=== PATIENT | male | born 1945 | race Caucasian/White ===

== ENCOUNTER 2023-09-26 03:47 | Emergency (ER) | payer OTHER ==
--- OUTSIDE RECORDS SUMMARY | 2023-09-26 03:50 | XMS REPORT | Continuity of Care Document ---
Author Name Unknown Address [address] [place] [address] [address] [place] [address] [facility] thconnect Address [address] [facility] 1 [address] [place] [address] Care Team Providers Care Sales Attendant Building Materials Name Role Phone [email or web address]_W Attending Clinician Unavaila ble [email or web address]_Heath_W Admitting Clinician Unavaila ble Payers Payer Name Policy Type Policy Number Effective Date Expirati on Date Source MEDICARE [place]: [employer] [id number] 2012 00:00:00 [employer] - FOR LIFE (MEDICARE SUPPLEMENT) [id number] Problems Condition Name Condition Details Condition Category Status Onset Date Resolution Date Last Treatment Date Treating Clinician Comments Source Right flank pain Right Flank Pain Problem Active 5-26 00:00: 00 [facility] Benign prostatic hyperplasi a Benign Prostatic Hyperplasi a Problem Active 2022-02 1-15 00:00: 00 [facility] 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 Problem Active 4-03 00:00: 00 [facility] Secondary erectile dysfunctio n Secondary Erectile Dysfunctio n Problem Active 3-28 00:00: 00 [facility] Chronic kidney disease stage 2 Chronic Kidney Disease Stage 2 Problem Active 1-05 00:00: 00 [facility] Fatigue Fatigue Problem Active 2020-02 2-14 00:00: 00 [facility] Inflammato ry neuropathy Inflammato ry Neuropathy Problem Active 8-16 00:00: 00 [facility] Arthropath y Arthropath y Problem Active 8-16 00:00: 00 [facility] Joint pain Joint Pain Problem Active 8-16 00:00: 00 [facility] Shoulder pain Shoulder Pain Problem Active 2-26 00:00: 00 [facility] Acute ankle pain Acute Ankle Pain Problem Active 04-13 00:00: 00 [facility] Right achilles tendonitis Right Achilles Tendonitis Problem Active 04-13 00:00: 00 [facility] Disturbanc e in sleep behavior Disturbanc e in Sleep Behavior Problem Active 2019-02 2 00:00: 00 [facility] Asthenia Asthenia Problem Active 10-05 00:00: 00 [facility] Nocturia Nocturia Problem Active 10-05 00:00: 00 [facility] Patient encounter status Patient Encounter Status Problem Active 10-05 00:00: 00 [facility] 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 Problem Active 09-08 00:00: 00 [facility] Hyperlipid emia Hyperlipid emia Problem Active 09-08 00:00: 00 [facility] Low back pain Low Back Pain Problem Active 05-04 00:00: 00 [facility] General symptom General Symptom Problem Active 2013-02 0 00:00: 00 [facility] Amnesia Amnesia Problem Active 2013-02 0 00:00: 00 [facility] Electrocar diogram abnormal Electrocar diogram Abnormal Problem Active 10-11 00:00: 00 [facility] Hypertensi ve disorder Hypertensi ve Disorder Problem Active 10-26 00:00: 00 [facility] Clinical finding Clinical Finding Problem Active 10-26 00:00: 00 [facility] Allergies, Adverse Reactions, Alerts Allergy Name Allergy Type Status Severity Reaction(s) Onset Date Inactive Date Treating Clinician Comments Source AMLODIPI NE BESYLATE Allergy to substanc e Active Edema [facility] Social History Smoking Status Start Date Stop Date Source Never Smoker [facility] Medications Ordered Medication Name Filled Medication Name Start Date Stop Date Current Medication? Ordering Clinician Indication Dosage Frequency Signature (SIG) Comments Components Source atorvastati n 40 mg tablet atorvastati n 40 mg tablet No atorvastat in 40 mg tablet [facility] dorzolamide 2 % eye drops dorzolamide 2 % eye drops No dorzolamid e 2 % eye drops [facility] Edarbi 80 mg tablet TAKE 1 TABLET BY MOUTH EVERY DAY Edarbi 80 mg tablet TAKE 1 TABLET BY MOUTH EVERY DAY No Edarbi 80 mg tablet TAKE 1 TABLET BY MOUTH EVERY DAY [facility] omeprazole 20 mg capsule,del ayed release 1 PO QD omeprazole 20 mg capsule,del ayed release 1 PO QD No omeprazole 20 mg capsule,de layed release 1 PO QD [facility] tadalafil 20 mg tablet TAKE 1 TABLET NEEDED tadalafil 20 mg tablet TAKE 1 TABLET NEEDED No 1 tadalafil 20 mg tablet TAKE 1 TABLET NEEDED [facility] temazepam 30 mg capsule Take 1 capsule every day by oral route at bedtime for 90 days. temazepam 30 mg capsule Take 1 capsule every day by oral route at bedtime for 90 days. No 1capsul e(s) Q1D temazepam 30 mg capsule Take 1 capsule every day by oral route at bedtime for 90 days. [facility] compounded medication Test 200mg 1 cc IM weekly Test 200mg 1 cc IM weekly compounded medication Test 200mg 1 cc IM weekly Test 200mg 1 cc IM weekly No compounded medication Test 200mg 1 cc IM weekly Test 200mg 1 cc IM weekly [facility] dutasteride 0.5 mg capsule 1 PO QD dutasteride 0.5 mg capsule 1 PO QD No dutasterid e 0.5 mg capsule 1 PO QD [facility] Lasix 40 mg tablet Take 1 tablet every day by oral route in the morning for 90 days. Lasix 40 mg tablet Take 1 tablet every day by oral route in the morning for 90 days. No 1 Q1D Lasix 40 mg tablet Take 1 tablet every day by oral route in the morning for 90 days. [facility] nifedipine ER 60 mg tablet,exte nded release Take 1 tablet every day by oral route. nifedipine ER 60 mg tablet,exte nded release Take 1 tablet every day by oral route. No 1 Q1D nifedipine ER 60 mg tablet,ext ended release Take 1 tablet every day by oral route. [facility] sildenafil 50 mg tablet Take 1 tablet every 72 hours by oral route as directed for 90 days. sildenafil 50 mg tablet Take 1 tablet every 72 hours by oral route as directed for 90 days. No 1 sildenafil 50 mg tablet Take 1 tablet every 72 hours by oral route as directed for 90 days. [facility] testosteron e cypionate 200 mg/mL intramuscul ar oil inject 1 ML INTRAMUSCUL RYAN EVERY WEEK testosteron e cypionate 200 mg/mL intramuscul ar oil inject 1 ML INTRAMUSCUL RYAN EVERY WEEK No testostero ne cypionate 200 mg/mL intramuscu lar oil inject 1 ML INTRAMUSCU LARLY EVERY WEEK [facility] Immunizations Ordered Immunization Name Filled Immunization Name Date Status Comments Source COVID-19, mRNA, LNP-S, PF, 100 mcg/0.5 mL dose (Moderna) - ML COVID-19, mRNA, LNP-S, PF, 100 mcg/0.5 mL dose (Moderna) - ML Unknown Completed [facility] TST, unspecified formulation TST, unspecified formulation Unknown Completed [facility] pneumococcal polysaccharide PPV23 pneumococcal polysaccharide PPV23 Unknown Completed [facility] COVID-19, mRNA, LNP-S, PF, 30 mcg/0.3 mL dose, cricket-sucrose (Pfizer-BioNTech) - ML COVID-19, mRNA, LNP-S, PF, 30 mcg/0.3 mL dose, cricket-sucrose (Pfizer-BioNTech) - ML Unknown Completed [facility] Vital Signs Vital Name Observation Time Observation Value Comments S ource BP Diastolic 2023-07-12 00:00:00 88 mm[Hg] [facility] Body Weight 2023-07-12 00:00:00 3538 [oz_av] [facility] BP Systolic 2023-07-12 00:00:00 132 mm[Hg] [facility] BMI (Body Mass Index) 2023-07-12 00:00:00 29.2 kg/m2 [facility] Height 2023-07-12 00:00:00 73 [in_i] [facility] BP Diastolic 2022-05-19 00:00:00 72 mm[Hg] [facility] Height 2022-05-19 00:00:00 73 [in_i] [facility] BMI (Body Mass Index) 2022-05-19 00:00:00 29 kg/m2 [facility] BP Systolic 2022-05-19 00:00:00 128 mm[Hg] [facility] Body Weight 2022-05-19 00:00:00 3520 [oz_av] [facility] Procedures Procedure Date / Time Performed Performing Clinicia n Source CT, abdomen + pelvis, w/o contrast 2023-07-12 00:00:00 [facility] Encounters Start Date/Time End Date/Time Encounter Type Admission Type Attending Clinicians Care Facility Care Department Encounter ID Source 2023-07-12 00:00:00 2023-07-12 00:00:00 LEEANNA Ruiz: [address] [place] [address] , Ph. [facility] - GC_GCVMD_Au stin Office* [id number] [facility] 2023-05-20 00:00:00 2023-05-20 00:00:00 Outpatient GC_GCVMD_Fr anklin_W PRIV PRIV [id number] [facility] 2023-05-19 00:00:00 2023-05-19 00:00:00 Outpatient GC_GCVMD_Fr anklin_W PRIV PRIV [id number] [facility] 2023-04-21 00:00:00 2023-04-21 00:00:00 Outpatient GC_GCVMD_Fr anklin_W PRIV PRIV [id number] [facility] 2023-03-24 00:00:00 2023-03-24 00:00:00 Outpatient GC_GCVMD_Fr anklin_W PRIV PRIV [id number] [facility] 2022-05-19 00:00:00 2022-05-19 00:00:00 Outpatient GC_GCVMD_Fr anklin_W PRIV PRIV [id number] [facility] 2022-05-19 00:00:00 2022-05-19 00:00:00 LEEANNA Ruiz: [address] [place] [address], [facility] [address], [place] [address] , Ph. [facility] - GC_GCVMD_Dorian [facility] Office [id number] [facility] 2022-05-16 00:00:00 2022-05-16 00:00:00 Outpatient GC_GCVMD_Fr anklin_W PRIV PRIV [id number] [facility] 2022-05-16 00:00:00 2022-05-16 00:00:00 Outpatient GC_GCVMD_Fr anklin_W [facility] [id number] [facility] 2022-05-15 00:00:00 2022-05-15 00:00:00 Outpatient GC_GCVMD_Fr danae_Travon [facility] [id number] [facility] 2022-04-21 00:00:00 2022-04-21 00:00:00 Outpatient GC_GCVMD_Fr danae_Travon [facility] [id number] [facility] Results Test Description Test Time Test Comments Results Result Co mments Source [facility] - Serum or [id number] 00:00:00* Test Item Value Reference Range Interpretation Comme nts sodium (test code = sodium) 142 mmol/L 136-145 potassium (test code = potassium) 5.1 mmol/L 3.5-5.5 chloride (test code = chloride) 103 mmol/L 98-107 CO2 (test code = CO2) 27 mmol/ L 23-31 glucose (test code = glucose) 94 mg/dL 70-99 BUN (test code = BUN) 17 mg/dL 6-20 creatinine (test code = creatinine) 1.5 mg/dL 0.7-1.2 H calcium (test code = calcium) 9.4 mg/dL 8.8-10.6 total protein (test code = total protein) 6.7 g/dL 6.0-8.3 albumin (test code = albumin) 4.4 g/dL 3.5-5.2 total bilirubin (test code = total bilirubin) 0.5 mg/dL 0.0-1.2 alkaline phosphatase (test code = alkaline phosphatase) 75 U/L 44-147 AST (SGOT) (test code = AST (SGOT)) 29 U/L 0-40 ALT (SGPT) (test code = ALT (SGPT)) 24 U/L 0-41 globulin (test code = globulin) 2.3 g/dL 1.7-3.7 A/G ratio (test code = A/G ratio) 1.9 calc. 1.1-2.9 BUN/creatinine ratio (test code = BUN/creatinine ratio) 11.3 calc 10.0-28.0 eGFR non- (test code = eGFR non-) 48.624 mL/min/1.73A? >60.000 L eGFR (test code = eGFR ) 58.349 mL/min/1.73A? >60.000 L [facility] panel - Serum or [id number] 00:00:00* Test Item Value Reference Range Interpretation Comme nts cholesterol (test code = cholesterol) 108 mg/dL 0-200 triglycerides (test code = triglycerides) 68 mg/dL 10-150 HDL cholesterol (test code = HDL cholesterol) 41 mg/dL >40 HDL risk factor (test code = HDL risk factor) 2.6 calc. VLDL cholesterol (test code = VLDL cholesterol) 14 calc Cholesterol in LDL [Mass/vol ume] in Serum or Plasma (test code = 2089-1) 58 mg/dL <100 [facility] Blood by Automated [id number] 00:00:00* Test Item Value Reference Range Interpretation Comme nts WBC (test code = WBC) 7.0 10 3.7-12.0 RBC (test code = RBC) 5.31 10 3.60-5.50 HGB (test code = HGB) 15.8 g/dL 13.5-17.5 HCT (test code = HCT) 49.4 % 35.0-53.0 MCV (test code = MCV) 93.2 um 80.0-102.0 MCH (test code = MCH) 29.7 pg 25.0-34.1 MCHC (test code = MCHC) 31.9 g/dL 29.0-35.0 RDW (test code = RDW) 15.5 % 10.9-16.9 plt (test code = plt) 139 10 136-392 MPV (test code = MPV) 10.3 um 7.4-11.1 gran % (test code = gran %) 50.0 % 36.0-78.0 lymph % (test code = lymph %) 33.7 % 12.0-48.0 mono % (test code = mono %) 11.5 % 0.0-13.0 eos % (test code = eos %) 4 % 0-8 baso % (test code = baso %) 1 % 0-2 gran # (test code = gran #) 3.5 10 1.2-6.8 lymph # (test code = lymph #) 2.3 10 1.2-3.2 mono # (test code = mono #) 0.8 10 0.3-0.8 eos # (test code = eos #) 0.3 10 0.0-0.2 H baso # (test code = baso #) 0.0 10 0.0-0.2 [facility]
[2023-09-26] MEDS ORDERED: ACETAMINOPHEN 500 MG TAB ONE (04:01)
[2023-09-26] MEDS ORDERED: KETOROLAC 30 MG/ML INJ ONE (04:02)
[2023-09-26] MEDS ORDERED: BENZONATATE 100 MG CAP PO ONE (04:02)
[2023-09-26 04:42] LABS: Absolute Basophils 0.1 K/uL (0-0.5); Absolute Eosinophils 0.1 K/uL (0-0.5); Absolute Lymphocytes (CBC) 0.8 K/uL (0.7-4.9); Absolute Monocytes 0.8 K/uL (0.1-1.3); Absolute Neutrophil 7.5 K/uL (1.8-8.0); Basophils % 0.9 % (0-1.3); Eosinophils % 1.4 % (0-4.4); Hematocrit 44.8 % (39.6-49.0); Hemoglobin 14.9 g/dL (13.6-17.9); Lymphocytes % 8.9 % (15.3-44.8); MCH 30.1 pg (27.0-35.0); MCHC 33.3 g/dL (32.0-36.0); MCV 90.3 fL (80-100); MPV 9.3 fL (7.6-11.3); Neutrophils % 79.8 % (41.7-73.7); Nucleated Red Blood Cells % 0.1 % (0-0); Platelets 144 thou/uL (152-406); RBC Red Blood Cell Count 4.96 M/uL (4.33-5.43); Red Cell Distribution Width 16.7 % (12.1-15.2)
[2023-09-26 04:50] LABS: Albumin 3.5 g/dL (3.4-5.0); Albumin/Globulin Ratio 1.1 (1.1-1.8); Anion Gap 9.9 mEq/L (5.0-15.0); Bilirubin Total 0.5 mg/dL (0.2-1.0); Globulin 3.1 g/dL (2.3-3.5); Potassium 3.9 mEq/L (3.5-5.1); Protein, Total 6.6 g/dL (6.4-8.2)
[2023-09-26 05:02] LABS: SARS-CoV-2 Antigen CONTROL BLUE LINE VIS/BG OK; SARS-CoV-2 Antigen Rapid Res Negative (Negative)
[2023-09-26 05:31] LABS: Band Neutrophils 11 % (0-1); Blood Morphology Comment NOT SEEN (NOT SEEN); Differential Total Cells Count 100; Eosinophils 2 % (0-3); Lymphocytes 16 % (15-42); Monocytes 4 % (0-10); Platelet Estimate ADEQ; Reactive Lymphocytes 6 %; Segmented Neutrophils 60 % (40-80)
--- NOTE | 2023-09-26 05:35 | EDPHYS ---
Physician Documentation [facility] Name: Armando Oro Jr Age: 77 yrs Sex: Male : 1945 Arrival Date: 09/26/2023 Time: 03:47 Bed 5 Private MD: ED Physician Paolo Hendrickson HPI: 09/25 04:14 This 77 yrs old Male presents to ER via Ambulatory with complaints of URI s/s.ec2 04:14 Patient arrives today for evaluation of URI signs symptoms ongoing for 2 days. Patient ec2 reports some malaise, cough and congestion, some pain with coughing. Patient reports no nausea or vomiting or diarrhea. Denies any abdominal pain. No history of pulmonary pathology, no inhaler use. History of hypertension and hyperlipidemia. Non-smoker. Historical: - Allergies: 04:03 No Known Allergies; jj7 - PMHx: 04:04 High Cholesterol; Hypertension; GERD (Hypertension); jj7 - PSHx: 04:04 Appendectomy; jj7 - Immunization history:: Adult Immunizations up to date, Client reports receiving the 2nd dose of the Covid vaccine, Flu vaccine is up to date. - Infectious Disease History:: Denies. - Social history:: Smoking status: Patient denies any tobacco usage or history of. Patient uses alcohol, weekly. Patient/guardian denies using street drugs, IV drugs. ROS: 04:14 Constitutional: as per hpi ec2 Exam: 04:14 Constitutional: GEN: NAD Head: atraumatic Eyes: EOMI Ears: External ears are ec2 normal. CV: regular rate LUNGS: no respiratory distress, scattered wheeze noted. ABD: non-distended SKIN: no evidence of rashes MSK: no evidence of trauma NEURO: moves all extremities equally Vital Signs: 04:00 BP 163 / 79; Pulse 105; Resp 18; Temp 100.7; Pulse Ox 96% ; Weight 97.52 kg; Height 6 jj7 ft. 0 in. ; 04:41 BP 119 / 61; Pulse 84; ec2 05:11 BP 108 / 66; Pulse 84; Resp 18; Temp 99.1; Pulse Ox 93% ; Pain 3/10; bm8 04:00 Body Mass Index 29.16 (97.52 kg, 182.88 cm) jj7 05:11 Pain Scale: Adult bm8 Toney Coma Score: 05:11 Eye Response: spontaneous(4). Motor Response: obeys commands(6). Verbal Response: bm8 oriented(5). Total: 15. MDM: 03:50 Patient medically screened. ec2 04:14 Data reviewed: vital signs. ED course: Patient arrives today for URI signs and ec2 symptoms. Examination remarkable for slightly tachycardic febrile individuals otherwise in no acute distress with a reassuring overall examination. Will obtain lab work, chest x-ray, viral swabs. . 05:34 ED course: Chest x-ray independently reviewed and interpreted by me, shows no acute ec2 intrathoracic process. Suspect viral infection. Patient noted to have borderline saturations of 90-92, I recommended ambulatory challenge with pulse ox however the patient declined. Will discharge home. Will give the patient albuterol for his occasional scattered wheeze, no evidence of volume overload, no evidence of pneumonia, doubt PE given concurrent infectious symptoms. Return precautions given.. 09/25 03:57 Order name: CBC with Diff; Complete Time: 05:35 ec2 09/25 03:57 Order name: CMP; Complete Time: 04:50 ec2 09/25 03:57 Order name: Influenza Screen (a \T\ B); Complete Time: 05:06 ec2 09/25 03:57 Order name: SARS RAPID; Complete Time: 05:06 ec2 09/25 05:10 Order name: Manual Differential; Complete Time: 05:35 EDMS 09/25 03:57 Order name: CXR XRAY ec2 09/25 03:57 Order name: IV; Complete Time: 04:18 ec2 Administered Medications: 04:16 Drug: Tessalon Perle PO 100 mg PO once Route: PO; bm8 05:12 Follow up: Response: No adverse reaction bm8 04:16 Drug: Ketorolac IVP 15 mg IVP once Route: IVP; Site: right antecubital; bm8 05:12 Follow up: Response: No adverse reaction bm8 04:16 Drug: Acetaminophen PO 1000 mg PO once Route: PO; bm8 05:12 Follow up: Response: No adverse reaction bm8 05:46 Drug: Albuterol HFA Inhalation Inhaler 2 puffs Inhalation once Route: Inhalation; bm8 05:46 Follow up: Response: Medication administered at discharge. bm8 05:46 Drug: Codeine-Guaifenesin PO Liquid (10 mg-100 mg/5 mL) 5 ml PO once Route: PO; bm8 05:47 Follow up: Response: Medication administered at discharge. bm8 Disposition Summary: 09/26/23 05:34 Discharge Ordered Notes: Location: Home ec2 Condition: Stable ec2 Diagnosis - Viral infection, unspecified ec2 Followup: ec2 - With: Private Physician - When: - Reason: Re-evaluation by your physician Discharge Instructions: - Discharge Summary Sheet ec2 - Viral Illness, Adult ec2 Forms: - Medication Reconciliation Form ec2 - Antibiotic Education ec2 - Prescription Opioid Use ec2 - Patient Portal Instructions ec2 - Leadership Thank You Letter ec2 Prescriptions: - codeine-guaifenesin 10-200 mg/5 mL Oral liquid - take 10 milliliter ORAL route every 4 hours; 100 milliliter; Refills: 0, ec2 Product Selection Permitted - Tessalon Perles 100 mg Oral Capsule - take 1 capsule ORAL route every 8 hours As needed; 15 capsule; Refills: 0, ec2 Product Selection Permitted Signatures: Dispatcher [employer] EDMS Shimon Munoz RN RN jj7 Paolo Hendrickson MD MD ec2 Jose Castellanos RN RN bm8 Corrections: (The following items were deleted from the chart) 03:57 03:57 CBC+H.LAB.BRZ ordered. EDMS EDMS 03:57 03:57 COMPREHENSIVE METABOLIC PANEL+C.LAB.BRZ ordered. EDMS EDMS 03:57 03:57 Influenza Screen (A \T\ B)+BA.LAB.BRZ ordered. EDMS EDMS 03:57 03:57 SARS-COV-2 Antigen Rapid+I.LAB.BRZ ordered. EDMS EDMS 03:57 03:57 Chest Single View+RAD.RAD.BRZ ordered. EDMS EDMS 05:41 05:34 ED course: Chest x-ray independently reviewed and interpreted by me, shows no ec2 acute intrathoracic process. Suspect viral infection. Will discharge home. Return precautions given.. ec2
--- NOTE | 2023-09-26 05:35 | ER ---
Nurse's Notes [facility] Name: Armando Oro Jr Age: 77 yrs Sex: Male : 1945 Arrival Date: 09/26/2023 Time: 03:47 Bed 5 Private MD: Diagnosis: Viral infection, unspecified Presentation: 09/25 04:00 Chief complaint: Patient states: COUGH, FEVER, CHILLS, LETHARGY AND SORE THROAT. jj7 Coronavirus screen: chills, cough unrelated to allergies, fever. Ebola Screen: No symptoms or risks identified at this time. Initial Sepsis Screen: Does the patient meet any 2 criteria? HR > 90 bpm. Yes Does the patient have a suspected source of infection? No. Patient's initial sepsis screen is negative. Risk Assessment: Do you want to hurt yourself or someone else? Patient reports no desire to harm self or others. Onset of symptoms was September 25, 2023. 04:00 Method Of Arrival: Ambulatory j7 04:00 Acuity: SHAQUILLE 4 jj7 Triage Assessment: 04:04 General: Appears in no apparent distress. uncomfortable, Behavior is calm, cooperative, jj7 appropriate for age. Pain: Complains of pain in uvula, left aspect of posterior pharynx and right aspect of posterior pharynx. Historical: - Allergies: 04:03 No Known Allergies; jj7 - PMHx: 04:04 High Cholesterol; Hypertension; GERD (Hypertension); jj7 - PSHx: 04:04 Appendectomy; jj7 - Immunization history:: Adult Immunizations up to date, Client reports receiving the 2nd dose of the Covid vaccine, Flu vaccine is up to date. - Infectious Disease History:: Denies. - Social history:: Smoking status: Patient denies any tobacco usage or history of. Patient uses alcohol, weekly. Patient/guardian denies using street drugs, IV drugs. Screenin:16 [facility] ED Fall Risk Assessment (Adult) History of falling in the last 3 months, bm8 including since admission No falls in past 3 months (0 pts) Confusion or Disorientation No (0 pts) Intoxicated or Sedated No (0 pts) Impaired Gait No (0 pts) Mobility Assist Device Used No (0 pt) Altered Elimination No (0 pt) Score/Fall Risk Level 0 - 2 = Low Risk Oriented to surroundings, Maintained a safe environment, Assessed \T\ reinforced patient's understanding of fall precautions, Provided non-skid footwear, Hourly rounding (assess needs \T\ fall precautionary measures) done, Used ambulatory aids as needed (educated on \T\ assisted with). Abuse screen: Denies threats or abuse. Nutritional screening: No deficits noted. Tuberculosis screening: No symptoms or risk factors identified. Assessment: 04:16 Reassessment: Patient appears in no apparent distress at this time. Patient and/or bm8 family updated on plan of care and expected duration. Pain level reassessed. Patient is alert, oriented x 3, equal unlabored respirations, skin warm/dry/pink. 05:11 Reassessment: Patient appears in no apparent distress at this time. Patient and/or bm8 family updated on plan of care and expected duration. Pain level reassessed. Patient is alert, oriented x 3, equal unlabored respirations, skin warm/dry/pink. Patient states symptoms have improved. Vital Signs: 04:00 BP 163 / 79; Pulse 105; Resp 18; Temp 100.7; Pulse Ox 96% ; Weight 97.52 kg; Height 6 jj7 ft. 0 in. ; 04:41 BP 119 / 61; Pulse 84; ec2 05:11 BP 108 / 66; Pulse 84; Resp 18; Temp 99.1; Pulse Ox 93% ; Pain 3/10; bm8 04:00 Body Mass Index 29.16 (97.52 kg, 182.88 cm) jj7 05:11 Pain Scale: Adult bm8 Toney Coma Score: 05:11 Eye Response: spontaneous(4). Motor Response: obeys commands(6). Verbal Response: bm8 oriented(5). Total: 15. ED Course: 03:50 Patient arrived in ED. ec2 03:50 Paolo Hendrickson MD is Attending Physician. ec2 03:57 Jose Castellanos, RN is Primary Nurse. bm8 04:03 Triage completed. jj7 04:04 Arm band placed on right wrist. Patient placed in an exam room, on a stretcher. jj7 04:16 Patient has correct armband on for positive identification. Bed in low position. Call bm8 light in reach. Side rails up X 1. Client placed on continuous cardiac and pulse oximetry monitoring. NIBP monitoring applied. Pulse ox on. NIBP on. Door closed. Noise minimized. Warm blanket given. Pillow given. Verbal reassurance given. 04:16 No provider procedures requiring assistance completed. Inserted saline lock: 20 gauge bm8 in right antecubital area, using aseptic technique. Blood collected. Flushed with 10 mL NS Missed attempt(s): 20 gauge in right forearm. Bleeding controlled, band aid applied, catheter tip intact. 04:16 Initial lab(s) drawn, by me, sent to lab. COVID swab sent to lab. Flu and/or RSV swab bm8 sent to lab. 04:47 CXR XRAY In Process Unspecified. EDMS 05:51 Provided Education on: post er care. bm8 05:51 Patient did not have IV access during this emergency room visit. bm8 Administered Medications: 04:16 Drug: Tessalon Perle PO 100 mg PO once Route: PO; bm8 05:12 Follow up: Response: No adverse reaction bm8 04:16 Drug: Ketorolac IVP 15 mg IVP once Route: IVP; Site: right antecubital; bm8 05:12 Follow up: Response: No adverse reaction bm8 04:16 Drug: Acetaminophen PO 1000 mg PO once Route: PO; bm8 05:12 Follow up: Response: No adverse reaction bm8 05:46 Drug: Albuterol HFA Inhalation Inhaler 2 puffs Inhalation once Route: Inhalation; bm8 05:46 Follow up: Response: Medication administered at discharge. bm8 05:46 Drug: Codeine-Guaifenesin PO Liquid (10 mg-100 mg/5 mL) 5 ml PO once Route: PO; bm8 05:47 Follow up: Response: Medication administered at discharge. bm8 Medication: 04:16 VIS not applicable for this client. bm8 Outcome: 05:34 Discharge ordered by . ec2 05:51 Discharged to home ambulatory, bm8 05:51 Condition: stable 05:51 Discharge instructions given to patient, Instructed on discharge instructions, follow up and referral plans. no drinking with medication, no driving heavy equipment, medication usage, safety practices, Demonstrated understanding of instructions, follow-up care, medications, Prescriptions given X 2, 05:52 Patient left the ED. bm8 Signatures: Dispatcher [employer] Shimon Swan RN RN jj7 Paolo Hendrickson MD MD ec2 Jose Castellanos, TIERNEY RN bm8
[2023-09-26] MEDS ORDERED: GUAIFENESIN/CODEINE 5ML UCUP ONE (05:46)
[2023-09-26] MEDS ORDERED: ALBUTEROL INHALER 200 PUFF/6.7 GM IH ONE (05:46)
[2023-09-26 06:01] VITALS: BP 108/66; TEMP 99.1; O2SAT 93
--- NOTE | 2023-09-27 23:08 | RAD REPORT ---
EXAM DESCRIPTION: RAD - Chest Single View - 09/26/2023 4:45 am CLINICAL HISTORY: The patient is 77 years old and is Male; COUGH TECHNIQUE: Frontal view of the chest. COMPARISON: No relevant prior studies available. FINDINGS: Lungs: Unremarkable. No consolidation. Pleural space: Unremarkable. No pneumothorax. Heart: Unremarkable. Mediastinum: Unremarkable. Normal mediastinal contour. Bones/joints: No acute findings. IMPRESSION: No acute findings in the chest. Electronically signed by: Karlo Cedeno MD 09/26/2023 05:21 AM CDT 8 Due to temporary technical issues with the PACS/Fluency reporting system, reports are being signed by the in house radiologists without review as a courtesy to insure prompt reporting. The interpreting radiologist is fully responsible for the content of the report.
== END 2023-09-26 05:52 | disposition home or self-care (01) ==
LOC: ER 03:47
DX: J06.9 Acute upper respiratory infection, unspecified (principal); Z11.52 Encounter for screening for COVID-19
CPT/HCPCS: 36415; 71045; 80053; 85025; 87804; 87811; 96374; 99285